=== PATIENT | female | born 1975 | race Two or more races ===

== ENCOUNTER 2022-07-21 10:00 | Emergency (ER) | payer OTHER ==
[~2022-07-21] VITALS: Ht 165.1 cm; Wt 70.8 kg
== END 2022-07-21 14:50 ==
LOC: ER 10:00
DX: S90.121A Contusion of right lesser toe(s) without damage to nail, initial encounter (principal); W22.8XXA Striking against or struck by other objects, initial encounter; Y93.89 Activity, other specified; Y92.89 Other specified places as the place of occurrence of the external cause; Z88.0 Allergy status to penicillin